=== PATIENT | female | born 1945 | race Hispanic/Latino ===

== ENCOUNTER 2019-04-09 13:11 | Emergency (ER) | payer MEDICARE ==
[2019-04-09] MEDS ORDERED: NACL 0.9% 1000 ML 1,000 ML ONE (13:52)
[2019-04-09] MEDS ORDERED: NACL 0.9% 500 ML 500 ML IV ONE (13:53)
[2019-04-09] MEDS ORDERED: MERREM 1,000 MG in NACL 0.9% 100 ML IV ONE (13:55)
[2019-04-09] MEDS ORDERED: NACL 0.9% 1000 ML 1,000 ML IV ONE (13:55)
[2019-04-09 14:11] LABS: Basophils # (Auto) 0.1 K/mm3 (0.0-0.1); Basophils % (Auto) 0.9 % (0.0-1.8); Hematocrit 36.1 % (30.3-42.9); Hemoglobin 11.9 gm/dl (10.1-14.3); Lymphocytes # (Auto) 0.6 K/mm3 (1.2-5.4); Lymphocytes % (Auto) 4.5 % (13.4-35.0); Mean Corpuscular HGB Conc 33 % (30-34); Mean Corpuscular Volume 95 fl (79-97); Monocytes # (Auto) 0.7 K/mm3 (0.0-0.8); Monocytes % (Auto) 5.4 % (0.0-7.3); Platelet Count 197 K/mm3 (140-440); Red Blood Count 3.78 M/mm3 (3.65-5.03); Red Cell Distribution Width 14.7 % (13.2-15.2)
[2019-04-09 14:27] LABS: Alanine Aminotransferase 14 units/L (7-56); BUN/Creatinine Ratio 21; Blood Urea Nitrogen 88 mg/dL (7-17); Calcium 10.4 mg/dL (8.4-10.2); Hemolysis Index 0; INR 1.25 (0.87-1.13)
--- NOTE | 2019-04-09 14:57 | XRay Report ---
CHEST 1 VIEW INDICATION: possible Sepsis. COMPARISON: None FINDINGS: SUPPORT DEVICES: None. HEART / MEDIASTINUM: No significant abnormality. LUNGS / PLEURA: Questionable density overlying the right upper lobe medial aspect. No significant pul monary or pleural abnormality. No pneumothorax. ADDITIONAL FINDINGS: Surgical clips present left breast IMPRESSION: 1. Questionable density overlying the right upper lobe, recommend repeat PA and lateral radiographs f or further evaluation Signer Name: Valentin Sanchez MD Signed: 04/09/2019 2:53 PM Workstation Name: [id number]
[2019-04-09 15:00] LABS: Bilirubin,Direct < 0.2 mg/dL (0-0.2)
[2019-04-09] MEDS ORDERED: VANCOMYCIN 1,500 MG in NACL 0.9% 500 ML 500 ML IV ONE (15:00)
[2019-04-09] MEDS ORDERED: VANCOMYCIN PHARMACY TO DOSE IV SCH (15:00)
--- NOTE | 2019-04-09 15:06 | Emergency Department Report ---
ED General Adult HPI - General Chief complaint: Altered Mental Status Stated complaint: AMS/UNRESPONSIVE Time Seen by Provider: 04/09/19 13:53 Source: patient Mode of arrival: Stretcher Limitations: Altered Mental Status - History of Present Illness Initial comments: This is a 73-year-old female who was sent from the retirement for an obtunded state. She is known to have a life-threatening infection. She has been given IM Rocephin I believe several days in succession. The family has been requesting DO NOT RESUSCITATE status but they have not executed paperwork. Patient arrives unable to provide any history. She is apparently septic. I am told that the family basically wants to withdraw care. Severity scale (0 -10): 0 - Related Data Allergies Allergy/AdvReac Type Severity Reaction Status Date / Time codeine Allergy Unknown Verified 04/09/19 13:45 ED Review of Systems ROS: Stated complaint: AMS/UNRESPONSIVE Other details as noted in HPI Comment: Unobtainable due to pts medical conditions ED Past Medical Hx - Past Medical History Previous Medical History?: Yes Hx Hypertension: Yes Hx CVA: Yes Hx Diabetes: Yes (Type II) Hx of Cancer: Yes (Breast) - Social History Smoking Status: Unknown if ever smoked Substance Use Type: None ED Physical Exam - General Limitations: Altered Mental Status, Other (noncommunicative) General appearance: obtunded - Head Head exam: Present: atraumatic - Eye Eye exam: Present: other (some conjugate gaze/force deviation noted). Absent: scleral icterus Pupils: Present: other (equal and reactive) - ENT ENT exam: Present: mucous membranes dry - Neck Neck exam: Absent: tenderness, meningismus - Respiratory Respiratory exam: Present: accessory muscle use - Cardiovascular Cardiovascular Exam: Present: tachycardia, systolic murmur - GI/Abdominal GI/Abdominal exam: Present: soft. Absent: distended, tenderness, guarding, rebound, rigid - Extremities Exam Extremities exam: Present: normal inspection - Neurological Exam Neurological exam: Present: altered - Skin Skin exam: Present: warm ED Course Vital Signs 04/09/19 04/09/19 04/09/19 13:33 13:40 14:00 Pulse Rate 107 H 96 H 89 Respiratory 27 H 24 24 Rate Blood Pressure 83/44 Blood Pressure 83/44 83/44 [Left] O2 Sat by Pulse 91 96 90 Oximetry 04/09/19 04/09/19 14:21 14:53 Pulse Rate 96 H 90 Respiratory 24 Rate Blood Pressure Blood Pressure 110/65 [Left] O2 Sat by Pulse 96 Oximetry - Reevaluation(s) Reevaluation #1: She was given IV fluids. Antibiotics were ordered pending the disorder is arrival for auscultation regarding end-of-life planning. Dr. Ang discussed this with her and she elected to make the patient DO NOT RESUSCITATE. I am told that hospice services will be provided at [facility] and that the patient may be sent back to the retirement. 04/09/19 15:41 ED Medical Decision Making - Lab Data Result diagrams: 04/09/19 13:45 04/09/19 13:45 Laboratory Results - last 24 hr 04/09/19 04/09/19 04/09/19 13:45 13:45 13:45 WBC 13.8 H RBC 3.78 Hgb 11.9 Hct 36.1 MCV 95 MCH 31 MCHC 33 RDW 14.7 Plt Count 197 Lymph % (Auto) 4.5 L [place] % (Auto) 5.4 Eos % (Auto) 0.0 Baso % (Auto) 0.9 Lymph # 0.6 L [place] # 0.7 Eos # 0.0 Baso # 0.1 Seg Neutrophils % 89.2 H Seg Neutrophils # 12.3 H PT 15.4 H INR 1.25 H VBG pH Sodium Potassium Chloride Carbon Dioxide Anion Gap BUN Creatinine Estimated GFR BUN/Creatinine Ratio Glucose Lactic Acid 2.60 H* Calcium Magnesium Total Bilirubin Direct Bilirubin Indirect Bilirubin AST ALT Alkaline Phosphatase Total Protein Albumin Albumin/Globulin Ratio 04/09/19 04/09/19 04/09/19 13:45 13:45 13:45 WBC RBC Hgb Hct MCV MCH MCHC RDW Plt Count Lymph % (Auto) [place] % (Auto) Eos % (Auto) Baso % (Auto) Lymph # [place] # Eos # Baso # Seg Neutrophils % Seg Neutrophils # PT INR VBG pH 7.313 L Sodium 144 Potassium 5.2 H Chloride 105.4 Carbon Dioxide 25 Anion Gap 19 BUN 88 H Creatinine 4.2 H Estimated GFR 10 BUN/Creatinine Ratio 21 Glucose 296 H Lactic Acid Calcium 10.4 H Magnesium 2.50 H Total Bilirubin 0.20 Direct Bilirubin < 0.2 Indirect Bilirubin 0.0 AST 25 ALT 14 Alkaline Phosphatase 120 Total Protein 7.2 Albumin 3.0 L Albumin/Globulin Ratio 0.7 Critical Care Time: Yes Critical care time in (mins) excluding proc time.: 45 Critical care attestation.: If time is entered above; I have spent that time in minutes in the direct care of this critically ill patient, excluding procedure time. ED Disposition Clinical Impression: Sepsis Qualifiers: Sepsis type: sepsis due to unspecified organism Sepsis acute organ dysfunction status: with acute organ dysfunction Severe sepsis acute organ dysfunction type: acute renal failure Acute renal failure type: unspecified Severe sepsis shock status: with septic shock Qualified Code(s): A41.9 - Sepsis, unspecified organism; R65.21 - Severe sepsis with septic shock; N17.9 - Acute kidney failu re, unspecified Disposition: DC/TX-70 ANOTHER TYPE HLTHCARE Is pt being admited?: No Does the pt Need Aspirin: No Condition: Stable Time of Disposition: 15:43
[2019-04-09 15:15] LABS: INR 1.29 (0.87-1.13)
[2019-04-09 15:52] LABS: Bacteria,Urine 2+ /HPF (Negative); Bilirubin,Urine NEG (Negative); Blood,Urine MOD (Negative); Color,Urine Amber (Yellow); Mucus,Urine FEW /HPF; Urobilinogen,Urine < 2.0 mg/dL (<2.0)
--- NOTE | 2019-04-09 16:13 | Event Note ---
Date: 04/09/19 See history and physical in the reports Septic shock Failure to thrive Patient admitted to hospice See discharge summary also in the reports.
[2019-04-09 16:44] VITALS: BP 123/62
--- NOTE | 2019-04-09 21:19 | History and Physical Report ---
CHIEF COMPLAINT: Altered sensorium for a couple of days. HISTORY OF PRESENT ILLNESS: A 73-year-old female with a cerebrovascular accident, diabetes, breast cancer and hypertension, [facility] from the [facility] for severe urinary tract infection. The patient was also hypotensive in the Emergency Room. The patient has a do not resuscitate status. The patient is unresponsive and breathing slowly. The patient was also hypotensive at the time of my examination with blood pressure in the 83/44. PAST MEDICAL HISTORY: Significant for hypertension, cerebrovascular accident, diabetes, cancer. SOCIAL HISTORY: Unknown if ever smoked. Lives in prison. FAMILY HISTORY: Hypertension. PAST SURGICAL HISTORY: Unavailable. REVIEW OF SYSTEMS: Significant for having fevers and low blood pressure and urinary tract infections. Otherwise, review of systems negative. PHYSICAL EXAMINATION: GENERAL: An elderly female lying in bed, altered sensorium. VITAL SIGNS: Temperature 98.3, blood pressure was 83/44, pulse rate is 89, respiratory rate is 24, O2 sats are 90%. HEENT: Dry mucous membranes. NECK: Supple, no lymphadenopathy, no thyromegaly. LUNGS: Scattered rhonchi bilaterally. CARDIOVASCULAR: S1, S2 heard. No gallop, no murmur, no rub. Apical impulse in left fifth intercostal space and midclavicular line. ABDOMEN: Soft and benign. No hepatosplenomegaly. No guarding, no rigidity. Hernial orifices are normal. EXTREMITIES: Fair pedal pulses. CENTRAL NERVOUS SYSTEM: Intermittently alert. Lethargic otherwise. Nonresponsive to a large extent. Moves all 4 extremities. LABORATORY DATA: Significant for white count of 13,800, H is 11.9 and 36.1, potassium is 5.2. Lactic acid is 2.60, glucose is 296. Urine shows more than 187 wbc's. ASSESSMENT AND PLAN: 1. Septic shock. The patient initiated on broad-spectrum IV antibiotics. 2. Urinary tract infection. The patient initiated on IV Rocephin and vancomycin. 3. Hypotension pressors as necessary. 4. Dehydration. IV fluids. 5. Acute kidney injury. IV fluids. In summary, the patient is septic shock and acute encephalopathy. The patient's respirations are slow in the range of 10. Prognosis is very poor. FINAL DIAGNOSES: 1. Septic shock. 2. Acute kidney injury. 3. Lactic acidosis. 4. Urinary tract infection. 5. Hyperkalemia. Very poor prognosis. Discussed hospice and advance care planning with the patient's daughter. Daughter is amenable to hospice placement. [facility]# [id number] CHARANJIT/MELISSA
--- NOTE | 2019-04-09 23:52 | Discharge Summary ---
HOSPITAL COURSE: The patient was diagnosed with septic shock, urinary tract infection, hypotension and elevated lactic acid, dehydration and acute kidney injury. It was decided to admit the patient to ICU for IV antibiotics, IV pressors and IV fluids. In the meantime, the daughter decided the patient to be DNR and to go to hospice. Antibiotics were discontinued. IV fluids were discontinued. The patient signed out to hospice care. DISCHARGE DIAGNOSES: 1. Septic shock. 2. Hypotension. 3. Urinary tract infection. 4. Acute encephalopathy. JOB# [id number] CHARANJIT/MELISSA
== END 2019-04-09 17:36 | disposition other institution (70) ==
LOC: ED 13:11
DX: A41.9 Sepsis, unspecified organism (principal); I10 Essential (primary) hypertension; E11.9 Type 2 diabetes mellitus without complications; Z85.3 Personal history of malignant neoplasm of breast
CPT/HCPCS: 36415; 71045; 80048; 80076; 81001; 82140; 82805; 83735; 85025; 85610; 87040; 87086; 93005; 93010; 96365; 96366; 96367; 99291; J2185; J3370; J7030; J7040